=== PATIENT | male | born 1980 | race Asian ===

== ENCOUNTER 2019-05-20 15:01 | Inpatient (IN) | payer MEDICAID ==
[~2019-05-20] VITALS: Ht 167.6 cm; Wt 89.6 kg
[2019-05-20 16:08] LABS: BASOPHILS % (AUTO) 1.1 % (0.0-2.0); EOSINOPHILS % (AUTO) 2.3 % (1.0-6.0); HEMATOCRIT 41.8 % (41-53); HEMOGLOBIN 14.1 g/dL (13.5-17.5); LYMPHOCYTES # (AUTO) 2.8 K/uL (1.0-4.8); LYMPHOCYTES % (AUTO) 26.9 % (22.0-44.0); MEAN CORPUSCULAR HEMOGLOBIN 28.7 pg (26.0-34.0); MEAN CORPUSCULAR HGB CONC 33.8 G/dL (31.0-37.0); MEAN CORPUSCULAR VOLUME 85 fL (80-100); MONOCYTES # (AUTO) 0.5 K/uL (0.1-1.0); MONOCYTES % (AUTO) 4.9 % (2.0-9.0); NEUTROPHILS # (AUTO) 6.7 K/uL (1.8-7.7); NEUTROPHILS % (AUTO) 64.8 % (40.0-70.0); PLATELET COUNT (AUTO) 302 K/uL (150-450); RED BLOOD CELL COUNT(AUTO) 4.92 MIL/uL (4.50-5.90); RED CELL DISTRIBUTION WIDTH 13.2 % (11.5-14.5)
[2019-05-20 16:18] LABS: ANION GAP 7 mmol/L (8-16); CALCIUM, TOTAL 8.7 mg/dL (8.8-10.5); CARBON DIOXIDE 25 mmol/L (22-29); CHLORIDE 102 mmol/L (98-107); CREATININE 1.07 mg/dL (0.60-1.30); GLOMERULAR FILTR. RATE CALC > 60 mL/min (>60); GLUCOSE,RANDOM 331 mg/dL (70-110); POTASSIUM 3.8 mmol/L (3.5-5.1); SODIUM SERUM 134 mmol/L (136-145); UREA NITROGEN, BLOOD 8 mg/dL (7-18)
[2019-05-20 16:25] LABS: ALANINE AMINOTRANSFERASE 33 U/L (12-78); ALBUMIN 3.5 g/dL (3.4-5.0); ALKALINE PHOSPHATASE 62 U/L (46-116); ASPARTATE AMINOTRANSFERASE 15 U/L (15-37); BILIRUBIN,TOTAL 0.6 mg/dL (0.1-1.0); TOTAL PROTEIN, SERUM 6.4 g/dL (6.4-8.2)
[2019-05-20] MEDS ORDERED: FUROSEMIDE 40 MG/4 ML VIAL IVP ONE (17:00)
[2019-05-20] MEDS ORDERED: ACETAMINOPHEN 325 MG TABLET PO PRN (18:45)
[2019-05-20] MEDS ORDERED: POTASSIUM CHLORIDE 20 MEQ ER TABLET PO PRN (18:45)
[2019-05-20] MEDS ORDERED: ONDANSETRON HCL 4 MG/2 ML VIAL IVP PRN (18:45)
[2019-05-20] MEDS ORDERED: DEXTROSE 50%-WATER 25 GM/50 ML SYRINGE IVP PRN (18:45)
[2019-05-20] MEDS ORDERED: POTASSIUM CHL 10 MEQ/WATER 50 ML IV PRN (18:45)
[2019-05-20] MEDS ORDERED: MAGNESIUM HYDROXIDE SUSPENSION 30 ML UDCUP PO PRN (19:00)
[2019-05-20 21:23] VITALS: BP 158/117
[2019-05-20] MEDS ORDERED: LISINOPRIL 20 MG TABLET PO ONE (21:30)
[2019-05-20] MEDS: INSULIN LISPRO 100 UNITS/ML SQ PRN (21:53)
[2019-05-20 23:24] VITALS: BP 164/118
[2019-05-20] MEDS: CloNIDine HCL 0.1 MG TABLET PO PRN (23:45)
[2019-05-21 00:44] VITALS: BP 142/96
[2019-05-21 03:51] LABS: AMPHET/METH SCREEN,URINE NEGATIVE (NEGATIVE); BARBITURATE SCREEN, URINE NEGATIVE (NEGATIVE); BENZODIAZEPINES SCREEN,URINE NEGATIVE (NEGATIVE); CANNABINOID SCREEN,URINE NEGATIVE (NEGATIVE); COCAINE SCREEN,URINE NEGATIVE (NEGATIVE); METHADONE SCREEN, URINE NEGATIVE (NEGATIVE); OPIATE SCREEN,URINE NEGATIVE (NEGATIVE); PHENCYCLIDINE SCREEN,URINE NEGATIVE (NEGATIVE)
[2019-05-21 04:25] VITALS: BP 131/83
[2019-05-21] MEDS ORDERED: PNEUMOCOCCAL VACCINE POLYVALENT 0.5 ML VIAL [PPSV23] IM ONE (06:15)
[2019-05-21 06:16] LABS: ANION GAP 11 mmol/L (8-16); CALCIUM, TOTAL 8.6 mg/dL (8.8-10.5); CARBON DIOXIDE 26 mmol/L (22-29); CHLORIDE 105 mmol/L (98-107); CREATININE 0.81 mg/dL (0.60-1.30); GLOMERULAR FILTR. RATE CALC > 60 mL/min (>60); GLUCOSE,RANDOM 163 mg/dL (70-110); POTASSIUM 3.4 mmol/L (3.5-5.1); SODIUM SERUM 142 mmol/L (136-145); UREA NITROGEN, BLOOD 8 mg/dL (7-18)
[2019-05-21] MEDS: INSULIN LISPRO 100 UNITS/ML SQ PRN ×4 (06:26→21:01)
[2019-05-21 06:27] LABS: HEMOGLOBIN A1C 9.2 % (4.5-6.2)
[2019-05-21 08:13] VITALS: BP 140/98
[2019-05-21] MEDS: FUROSEMIDE 20 MG/2 ML VIAL IVP SCH (08:16)
[2019-05-21] MEDS: LISINOPRIL 20 MG TABLET PO SCH (08:16)
[2019-05-21] MEDS: ACETAMINOPHEN 325 MG TABLET PO PRN ×2 (08:26→20:53)
[2019-05-21 12:00] VITALS: BP 149/96
[2019-05-21 16:06] VITALS: BP 140/91
[2019-05-21 19:21] LABS: GLUCOMETER DEV NAME(LOC) 5S.1; GLUCOSE,POINT OF CARE 184 MG/DL (70-110)
[2019-05-21 19:21] LABS: GLUCOMETER DEV NAME(LOC) 5S.1; GLUCOSE,POINT OF CARE 172 MG/DL (70-110)
[2019-05-21 19:21] LABS: GLUCOMETER DEV NAME(LOC) 5S.1; GLUCOSE,POINT OF CARE 214 MG/DL (70-110)
[2019-05-21 19:21] LABS: GLUCOMETER DEV NAME(LOC) 5S.1; GLUCOSE,POINT OF CARE 251 MG/DL (70-110)
[2019-05-21 20:06] VITALS: BP 153/92
[2019-05-21 22:50] LABS: GLUCOMETER DEV NAME(LOC) 5S.1; GLUCOSE,POINT OF CARE 206 MG/DL (70-110)
[2019-05-22] VITALS (8 sets, daily range): BP systolic 140–171; BP diastolic 94–117
[2019-05-22] MEDS: INSULIN LISPRO 100 UNITS/ML SQ PRN ×4 (06:16→20:25)
[2019-05-22 07:11] LABS: GLUCOMETER DEV NAME(LOC) 5S.1; GLUCOSE,POINT OF CARE 157 MG/DL (70-110)
[2019-05-22] MEDS: ACETAMINOPHEN 325 MG TABLET PO PRN (08:04)
[2019-05-22] MEDS: LISINOPRIL 20 MG TABLET PO SCH (08:04)
[2019-05-22] MEDS: FUROSEMIDE 20 MG/2 ML VIAL IVP SCH (08:04)
[2019-05-22] MEDS: CloNIDine HCL 0.1 MG TABLET PO PRN (15:36)
[2019-05-22] MEDS: METOPROLOL SUCCINATE 25 MG ER TABLET PO SCH (17:21)
[2019-05-22] MEDS: MetFORMIN HCL 500 MG TABLET PO SCH (17:24)
[2019-05-22 17:25] LABS: GLUCOMETER DEV NAME(LOC) 5S.1; GLUCOSE,POINT OF CARE 227 MG/DL (70-110)
[2019-05-22 20:40] LABS: GLUCOMETER DEV NAME(LOC) 5S.1; GLUCOSE,POINT OF CARE 194 MG/DL (70-110)
[2019-05-22 20:40] LABS: GLUCOMETER DEV NAME(LOC) 5N.1; GLUCOSE,POINT OF CARE 211 MG/DL (70-110)
[2019-05-23] VITALS (8 sets, daily range): BP systolic 130–149; BP diastolic 64–103
[2019-05-23 05:36] LABS: BASOPHILS % (AUTO) 0.7 % (0.0-2.0); EOSINOPHILS % (AUTO) 2.2 % (1.0-6.0); HEMOGLOBIN 14.1 g/dL (13.5-17.5); LYMPHOCYTES # (AUTO) 3.5 K/uL (1.0-4.8); LYMPHOCYTES % (AUTO) 31.6 % (22.0-44.0); MEAN CORPUSCULAR HEMOGLOBIN 28.9 pg (26.0-34.0); MEAN CORPUSCULAR HGB CONC 34.4 G/dL (31.0-37.0); MEAN CORPUSCULAR VOLUME 84 fL (80-100); MONOCYTES # (AUTO) 0.6 K/uL (0.1-1.0); MONOCYTES % (AUTO) 5.9 % (2.0-9.0); NEUTROPHILS # (AUTO) 6.5 K/uL (1.8-7.7); NEUTROPHILS % (AUTO) 59.6 % (40.0-70.0); PLATELET COUNT (AUTO) 303 K/uL (150-450); RED BLOOD CELL COUNT(AUTO) 4.87 MIL/uL (4.50-5.90); RED CELL DISTRIBUTION WIDTH 13.5 % (11.5-14.5)
[2019-05-23 05:42] LABS: GLUCOMETER DEV NAME(LOC) 5N.2; GLUCOSE,POINT OF CARE 144 MG/DL (70-110)
[2019-05-23 05:47] LABS: ANION GAP 12 mmol/L (8-16); CALCIUM, TOTAL 8.9 mg/dL (8.8-10.5); CARBON DIOXIDE 23 mmol/L (22-29); CHLORIDE 105 mmol/L (98-107); CREATININE 0.85 mg/dL (0.60-1.30); GLOMERULAR FILTR. RATE CALC > 60 mL/min (>60); GLUCOSE,RANDOM 153 mg/dL (70-110); POTASSIUM 3.9 mmol/L (3.5-5.1); SODIUM SERUM 140 mmol/L (136-145); UREA NITROGEN, BLOOD 14 mg/dL (7-18)
[2019-05-23] MEDS: LISINOPRIL 20 MG TABLET PO SCH (11:53)
[2019-05-23] MEDS: METOPROLOL SUCCINATE 25 MG ER TABLET PO SCH (11:53)
[2019-05-23] MEDS: MetFORMIN HCL 500 MG TABLET PO SCH ×2 (11:53→17:47)
[2019-05-23] MEDS: FUROSEMIDE 20 MG/2 ML VIAL IVP SCH (11:54)
[2019-05-23] MEDS: CloNIDine HCL 0.1 MG TABLET PO PRN (15:55)
[2019-05-23] MEDS: ACETAMINOPHEN 325 MG TABLET PO PRN (17:47)
[2019-05-23] MEDS: INSULIN LISPRO 100 UNITS/ML SQ PRN (17:50)
[2019-05-24 05:34] VITALS: BP 131/89
[2019-05-24 07:32] LABS: GLUCOMETER DEV NAME(LOC) 5N.1; GLUCOSE,POINT OF CARE 122 MG/DL (70-110)
[2019-05-24 07:32] LABS: GLUCOMETER DEV NAME(LOC) 5S.1; GLUCOSE,POINT OF CARE 213 MG/DL (70-110)
[2019-05-24 07:32] LABS: GLUCOMETER DEV NAME(LOC) 5S.1; GLUCOSE,POINT OF CARE 161 MG/DL (70-110)
[2019-05-24 07:32] LABS: GLUCOMETER DEV NAME(LOC) 5S.1; GLUCOSE,POINT OF CARE 126 MG/DL (70-110)
[2019-05-24 07:35] VITALS: BP 140/101
[2019-05-24] MEDS: MetFORMIN HCL 500 MG TABLET PO SCH ×2 (08:00→18:04)
[2019-05-24] MEDS: FUROSEMIDE 20 MG/2 ML VIAL IVP SCH (08:05)
[2019-05-24] MEDS ORDERED: FUROSEMIDE 40 MG/4 ML VIAL IVP ONE (09:00)
[2019-05-24] MEDS: METOPROLOL SUCCINATE 25 MG ER TABLET PO SCH (15:55)
[2019-05-24] MEDS: LISINOPRIL 20 MG TABLET PO SCH (15:55)
[2019-05-24] MEDS: ACETAMINOPHEN 325 MG TABLET PO PRN (15:56)
[2019-05-24 16:10] VITALS: BP 141/83
[2019-05-24] MEDS: INSULIN LISPRO 100 UNITS/ML SQ PRN (18:01)
[2019-05-24 19:54] VITALS: BP 138/94
[2019-05-24 23:49] VITALS: BP 150/88
[2019-05-25 04:31] LABS: GLUCOMETER DEV NAME(LOC) 5S.1; GLUCOSE,POINT OF CARE 348 MG/DL (70-110)
[2019-05-25 04:34] VITALS: BP 142/74
[2019-05-25] MEDS: INSULIN LISPRO 100 UNITS/ML SQ PRN ×2 (06:24→17:57)
[2019-05-25 07:32] VITALS: BP 151/104
[2019-05-25 07:55] VITALS: BP 142/97
[2019-05-25] MEDS: METOPROLOL SUCCINATE 25 MG ER TABLET PO SCH (07:56)
[2019-05-25] MEDS: MetFORMIN HCL 500 MG TABLET PO SCH ×2 (07:56→17:57)
[2019-05-25] MEDS: LISINOPRIL 20 MG TABLET PO SCH (07:56)
[2019-05-25] MEDS ORDERED: FUROSEMIDE 20 MG TABLET PO SCH (09:00)
[2019-05-25 11:12] VITALS: BP 110/57
[2019-05-25] MEDS ORDERED: FURO20 PO (11:43)
[2019-05-25] MEDS ORDERED: METO-558 PO (11:43)
[2019-05-25] MEDS ORDERED: LISI-662 PO (11:44)
[2019-05-25 11:47] LABS: GLUCOMETER DEV NAME(LOC) 5N.1; GLUCOSE,POINT OF CARE 129 MG/DL (70-110)
[2019-05-25 11:47] LABS: GLUCOMETER DEV NAME(LOC) 5N.1; GLUCOSE,POINT OF CARE 180 MG/DL (70-110)
[2019-05-25] MEDS ORDERED: POTA8TAB60 PO (11:47)
[2019-05-25] MEDS ORDERED: METF-960 PO (11:48)
[2019-05-25 15:23] VITALS: BP 137/99
[2019-05-25 18:06] LABS: GLUCOMETER DEV NAME(LOC) 5S.1; GLUCOSE,POINT OF CARE 139 MG/DL (70-110)
[2019-05-26 08:32] LABS: GLUCOMETER DEV NAME(LOC) 5S.2A; GLUCOSE,POINT OF CARE 186 MG/DL (70-110)
== END 2019-05-25 18:50 | disposition home or self-care (01) | DRG 292 ==
LOC: EMS 15:04 → 5N 18:33
PROVIDERS: ADMIT Internal Medicine; ATTEND Internal Medicine
PROC: 3E0234Z Introduction of Serum, Toxoid and Vaccine into Muscle, Percutaneous Approach (ICD-10-PCS; principal; 2019-05-21)
DX: I50.23 Acute on chronic systolic (congestive) heart failure (principal); I42.0 Dilated cardiomyopathy; F84.5 Asperger's syndrome; E11.65 Type 2 diabetes mellitus with hyperglycemia; F17.210 Nicotine dependence, cigarettes, uncomplicated; F90.9 Attention-deficit hyperactivity disorder, unspecified type; Z83.3 Family history of diabetes mellitus; Z23 Encounter for immunization; E87.6 Hypokalemia
CPT/HCPCS: 83036; 84132; 90732; 93005; 93306; 96374; J1940